=== PATIENT | male | born 1960 | race Caucasian/White ===

== ENCOUNTER 2017-11-07 16:21 | Emergency (ER) | payer OTHER ==
[~2017-11-07] VITALS: Ht 185.4 cm; Wt 94.5 kg
[2017-11-07 20:43] LABS: HEMATOCRIT 43.1 % (38.0-50.0); HEMOGLOBIN 14.8 G/DL (12.5-16.6); MCH 30.8 PG (29.0-34.0); MCHC 34.3 G/DL (30.0-36.0); MCV 89.8 FL (86-99); PLATELET COUNT 233 K/uL (156-360); RBC DIS.WIDTH-CV 12.1 % (11.8-14.6); RBC DIS.WIDTH-SD 39.8 % (39-53); WHITE BLOOD COUNT 13.1 K/uL (4.1-10.2)
[2017-11-07 20:52] LABS: CHLORIDE 106 mEq/L (99-109); POTASSIUM 3.7 mEq/L (3.7-5.4); SODIUM 139 mEq/L (136-147)
[2017-11-07 20:53] LABS: GLUCOSE 103 mg/dL (70-99)
[2017-11-07 20:57] LABS: GFR ESTIMATE (CALCULATED) > 59 mL/min/ (58.99-99999)
[2017-11-07 20:58] LABS: UREA NITROGEN (BUN) 15 mg/dL (9-23)
[2017-11-07] MEDS ORDERED: BACTRIM,SEPT1 TABLET PO (21:41)
[2017-11-07 21:45] LABS: ERTH.SED.RATE 24 MM/HR (0-20)
[2017-11-07 21:55] LABS: C-REACTIVE PROTEIN 17.4 MG/L (0-10)
[2017-11-07 22:00] VITALS: BP 148/88
== END 2017-11-07 22:06 | disposition home or self-care (01) ==
LOC: EME 16:21
PROVIDERS: Physician Assistant Medical
PROC: 0M9P3ZZ Drainage of Left Knee Bursa and Ligament, Percutaneous Approach (ICD-10-PCS; principal; 2017-11-07)
DX: M71.9 Bursopathy, unspecified (principal); I10 Essential (primary) hypertension
CPT/HCPCS: 73564; 80048; 85027; 85651; 86140; 87070; 87205; 89051; 89060; 93971; 99281; 99284